=== PATIENT | female | born 1970 | race Two or more races ===

== ENCOUNTER 2017-10-31 17:08 | Inpatient (IN) | payer OTHER ==
[~2017-10-31] VITALS: Ht 142.2 cm; Wt 50.1 kg
[~2017-10-31 17:08] MED LIST: LANTUS2P SQ; LISI10TA3 PO; SIMV10TA PO
[2017-10-31] MEDS ORDERED: SODIUM CHLOR 0.9% 1000 ML INJ 1,000 ML IV SCH ×2 (17:36→21:30)
[2017-10-31] MEDS ORDERED: ACETAMINOPHEN 325 MG TAB PO PRN (17:45)
[2017-10-31] MEDS ORDERED: SODIUM CHLORIDE 0.9% FLUSH 10 ML FLUSH IV FLUSH PRN (17:45)
[2017-10-31] MEDS ORDERED: ONDANSETRON HCL 4 MG/2 ML VIAL IVP PRN (17:45)
[2017-10-31] MEDS ORDERED: NALOXONE HCL 0.4 MG/ML AMP IV PUSH PRN (17:45)
[2017-10-31 17:51] VITALS: O2SAT 99
[2017-10-31 18:37] VITALS: BP 128/73; PULSE 68; RESP 18; TEMP 98.1; O2SAT 100
[2017-10-31 18:51] LABS: CALCIUM 8.7 MG/DL (8.5-10.1)
[2017-10-31 18:52] LABS: BICARBONATE 29.2 MEQ/L (21.0-32.0)
[2017-10-31 18:55] LABS: CREATININE 0.51 MG/DL (0.50-1.00)
[2017-10-31] MEDS ORDERED: DEXTROSE 50% IN WATER 50 ML VIAL(D50) IV PUSH PRN (19:15)
[2017-10-31] MEDS ORDERED: GLUCAGON 1 MG/ML VIAL OTHER PRN (19:15)
[2017-10-31 20:00] VITALS: BP 129/61; PULSE 76; RESP 16; TEMP 98.9; O2SAT 100
[2017-10-31 20:02] VITALS: O2SAT 99
[2017-10-31] MEDS ORDERED: TEMAZEPAM 15 MG CAP PO PRN (21:00)
[2017-10-31] MEDS ORDERED: INSULIN ASPART SUPPLEMENTAL SCALE SQ SCH (21:00)
[2017-10-31] MEDS: SODIUM CHLORIDE 0.9% FLUSH 10 ML FLUSH IV FLUSH SCH (21:00)
--- NOTE | 2017-10-31 21:20 | HHI.HP ---
History of Present Illness Primary Care Physician No Primary Care Physician Admission Diagnosis hyperglycemia Diagnoses: History of Present Illness 47 y/o diabetic female transfered from [facility]. Patient states that aprox 2 weeks ago she developed mid back pain on her rt side, this was at around the time of her menses. She states that she has been working increased hours since and attributed the pain to the long hours at work and standing. She states she also had her menses at this time and this was less then normal for her. She states her menses are usually very heavy for 3-4 days requiring frequent changes. She normally will take 4 ibuprofen but this time she only took tylenol. She then states her appetite diminished and she was not eating. Denies any abdominal pain, heartburn, change in bowel movements until today when she had a loose stool. No constipation, black or tarry stools. She states she simply lost her appetite and would not eat. Lost maybe 4 pounds. She is on lantus and stopped her insulin at this time as she was not eating.She does not check her sugars.She was urinating frequently, she was feeling weak and light headed. No fever chills or cough. Review of Systems Except as stated in HPI: all other systems reviewed are Neg Past Family Social History Allergies: Coded Allergies: No Known Drug Allergies (Verified Allergy, Unknown, 10/31/17) Past Medical History Diabetes Past Surgical History Reported Medications Lantus 30 units Family History HTN Diabetes Social History 29 years, works at [employer], has daughter who were recently visiting from [place] Physical Exam Vital Signs Vital Signs Date Time Temp Pulse Resp B/P (MAP) Pulse Ox O2 Delivery O2 Flow Rate FiO2 10/31/17 20:02 99 21 10/31/17 18:37 98.1 68 18 128/73 (91) 100 10/31/17 17:51 99 21 Physical Exam GENERAL: This is a well-nourished, well-developed patient, in no apparent distress. SKIN: No rashes, ecchymoses or lesions. Cool and dry. HEAD: Atraumatic. Normocephalic. No temporal or scalp tenderness. EYES: Pupils equal round and reactive. Extraocular motions intact. No scleral icterus. No injection or drainage. ENT: Nose without bleeding, drainage . Throat without erythema, tonsillar hypertrophy or exudate. Airway patent.Dry oral mucosa with thick saliva NECK: Trachea midline. No JVD or lymphadenopathy. Supple, nontender, no meningeal signs. CARDIOVASCULAR: Regular rate and rhythm without murmurs, gallops, or rubs. RESPIRATORY: Clear to auscultation. Breath sounds equal bilaterally. No wheezes , rales, or rhonchi. GASTROINTESTINAL: Abdomen soft, non-tender, nondistended. No hepato-splenomegaly , or palpable masses. No guarding. MUSCULOSKELETAL: Extremities without clubbing, cyanosis, or edema. No joint tenderness, effusion, or edema noted. No calf tenderness. Negative Homans sign bilaterally.Tender rt mid posterior thorax NEUROLOGICAL: Awake and alert. . Motor and sensory grossly within normal limits. Normal speech. Laboratory Laboratory Tests Test 10/31/17 18:11 Blood Urea Nitrogen 7 Creatinine 0.51 Random Glucose 361 Calcium Level 8.7 Sodium Level 144 Potassium Level 3.8 Chloride Level 111 Carbon Dioxide Level 29.2 Anion Gap 4 Estimat Glomerular Filtration Rate 130 Result Diagram: 10/31/17 1811 Caprini VTE Risk Assessment Caprini Risk Assessment Model Point Value = 1 Point Value = 2 Point Value = 3 Point Value = 5 Age 41-60 Minor surgery BMI > 25 kg/m2 Swollen legs Varicose veins or History of unexplained or recurrent spontaneous Oral contraceptives or hormone replacement Sepsis (< 1 month) Serious lung disease, including pneumonia (< 1 month) Abnormal pulmonary function Acute myocardial infarction Congestive heart failure (< 1 month) History of inflammatory bowel disease Medical patient at bed rest Age 61-74 Arthroscopic surgery Major open surgery (> 45 min) Laparoscopic surgery (> 45 min) Malignancy Confined to bed (> 72 hours) Immobilizing plaster cast Central venous access Age >= 75 History of VTE Family history of VTE Factor V Leiden Prothrombin [id number] Lupus anticoagulant Anticardiolipin antibodies Elevated serum homocysteine Heparin-induced thrombocytopenia Other congenital or acquired thrombophilia Stroke (< 1 month) Elective arthroplasty Hip, pelvis, or leg fracture Acute spinal cord injury (< 1 month) Prophylaxis Regimen Total Risk Factor Score Risk Level Prophylaxis Regimen 0-1 Low Early ambulation 2 Moderate Order ONE of the following: *Sequential Compression Device (SCD) *Heparin 5000 units SQ BID 3-4 Higher Order ONE of the following medications: *Heparin 5000 units SQ TID *Enoxaparin/Lovenox 40 mg SQ daily (WT < 150 kg, CrCl > 30 mL/min) *Enoxaparin/Lovenox 30 mg SQ daily (WT < 150 kg, CrCl > 10-29 mL/min) *Enoxaparin/Lovenox 30 mg SQ BID (WT < 150 kg, CrCl > 30 mL/min) AND/OR *Sequential Compression Device (SCD) 5 or more Highest Order ONE of the following medications: *Heparin 5000 units SQ TID (Preferred with Epidurals) *Enoxaparin/Lovenox 40 mg SQ daily (WT < 150 kg, CrCl > 30 mL/min) *Enoxaparin/Lovenox 30 mg SQ daily (WT < 150 kg, CrCl > 10-29 mL/min) *Enoxaparin/Lovenox 30 mg SQ BID (WT < 150 kg, CrCl > 30 mL/min) AND *Sequential Compression Device (SCD) Assessment and Plan Problem List: (1) Diabetes mellitus with hyperosmolarity without coma, with long-term current use of insulin ICD Codes: E11.00 - Type 2 diabetes mellitus with hyperosmolarity without nonketotic hyperglycemic-hyperosmolar coma ([facility]); Z79.4 - laborer [employer] (current) use of insulin Status: Acute Plan: patietnt received 7 units of regular insulin an 3 liters of normal saline prior to transfer to [facility]. Here her sugars and electrolytes have improved on arrival. Will cont hydration and ssi u/a from [place] reflexed to culture will dose with antibiotics for now (2) Anemia ICD Codes: D64.9 - Anemia, unspecified Plan: initial blood work shows patient to be anemic, she denies any prior hx of such, admits to heavy menses, will evaluate (3) Upper back pain on right side ICD Codes: M54.9 - Dorsalgia, unspecified Status: Acute Plan: will check ct scan, Problem Qualifiers (1) Diabetes mellitus with hyperosmolarity without coma, with long-term current use of insulin: Qualified Codes: E11.00 - Type 2 diabetes mellitus with hyperosmolarity without nonketotic hyperglycemic-hyperosmolar coma (N[facility]); 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
[2017-10-31] MEDS ORDERED: cefTRIAXone INJ 1,000 MG in SODIUM CHLORIDE 0.9% INJ 100 ML IV SCH (21:30)
[2017-10-31] MEDS: PANTOPRAZOLE SOD 40 MG DELAYED RELEASE TAB PO SCH (21:39)
[2017-10-31] MEDS: cefTRIAXone INJ 1,000 MG in SODIUM CHLORIDE 0.9% INJ 100 ML IV SCH (21:58)
[2017-10-31] MEDS ORDERED: IOHEXOL 350 MG/ML 10 ML VIAL (for RAD DIAG) IVCONTRAST ONE (23:02)
--- NOTE | 2017-10-31 23:08 | RADRPT ---
EXAM DATE/TIME: 10/31/2017 22:25 [place] COMPARISON: No previous studies available for comparison. INDICATIONS : Upper right back pain. IV CONTRAST: 60 cc Omnipaque 350 (iohexol) IV RADIATION DOSE: 6.64 CTDIvol (mGy) MEDICAL HISTORY : Diabetes mellitus type 2. SURGICAL HISTORY : None. ENCOUNTER: Initial ACUITY: 1 day PAIN SCALE: 2/10 LOCATION: chest TECHNIQUE: Volumetric scanning of the chest was performed. Using automated exposure control and adjustment of t he mA and/or kV according to patient size, radiation dose was kept as low as reasonably achievable to obtain optimal diagnostic quality images. DICOM format image data is available electronically for review and comparison. Follow-up recommendations for detected pulmonary nodules are based at a minimum on nodule size and pa tient risk factors according to Fleischner Society Guidelines. FINDINGS: The lungs are free of acute parenchymal opacity. No effusions are identified. Examination of the medi astinum demonstrates no abnormally enlarged lymph nodes by CT criteria. No axillary or hilar abnormal ities are identified. Coronary artery calcifications are present. The visualized upper abdomen demons trates no abnormality. There are no findings of dissection CONCLUSION: 1. No evidence of acute thoracic abnormality. No masses are identified. Remington Sunshine MD on October 31, 2017 at 23:04 Board Certified Radiologist. This report was verified electronically.
[2017-11-01] VITALS (8 sets, daily range): BP systolic 104–116; BP diastolic 60–78; PULSE 67–86; RESP 16–18; TEMP 98–99.7; O2SAT 94–100
[2017-11-01 01:13] LABS: RETIC # 99.1 MIL/L (20.0-150.0); RETIC % 1.9 % (0.4-3.0)
[2017-11-01 01:21] LABS: % SATURATION IRON PROFILE 2.8 % (20-50); IRON (FE) 10 MCG/DL (50-170); TOTAL IRON BINDING CAPACITY 360 MCG/DL (250-450)
[2017-11-01 01:46] LABS: FERRITIN 11 NG/ML (8-252); FOLATE 17.7 NG/ML (3.1-17.5); LDH SERUM 145 U/L (84-246)
[2017-11-01 06:36] LABS: AUTOMATED NEUTROPHIL # 6.3 TH/MM3 (1.8-7.7); BASOPHIL % 0.3 % (0.0-2.0); EOSINOPHIL # 0.1 TH/MM3 (0-0.4); EOSINOPHIL % 0.8 % (0.0-4.0); HEMATOCRIT 28.4 % (35.0-46.0); HEMOGLOBIN 8.1 GM/DL (11.6-15.3); LYMPH % 26.4 % (9.0-44.0); LYMPHOCYTE # 2.6 TH/MM3 (1.0-4.8); MEAN CELL VOLUME 56.9 FL (80.0-100.0); MEAN CORPUSCULAR HEMOGLOBIN 16.3 PG (27.0-34.0); MEAN PLATELET VOLUME 8.1 FL (7.0-11.0); MONOCYTE # 0.7 TH/MM3 (0-0.9); NEUT % 65.5 % (16.0-70.0); PLATELET COUNT 533 TH/MM3 (150-450); RED CELL DISTRIBUTION WIDTH 19.6 % (11.6-17.2); WHITE BLOOD COUNT 9.7 TH/MM3 (4.0-11.0)
[2017-11-01 06:56] LABS: MEAN CORPUSCULAR HGB CONC 28.6 % (32.0-36.0)
[2017-11-01] MEDS: SODIUM CHLORIDE 0.9% FLUSH 10 ML FLUSH IV FLUSH SCH ×2 (09:00→21:48)
[2017-11-01 09:21] LABS: ALBUMIN 2.4 GM/DL (3.4-5.0); BICARBONATE 24.6 MEQ/L (21.0-32.0); CALCIUM 7.4 MG/DL (8.5-10.1); CREATININE 0.48 MG/DL (0.50-1.00); TOTAL BILIRUBIN ADULT 0.3 MG/DL (0.2-1.0)
[2017-11-01] MEDS: PANTOPRAZOLE SOD 40 MG DELAYED RELEASE TAB PO SCH (09:46)
[2017-11-01] MEDS ORDERED: INFLUENZA VIRUS VACCINE (QUADRIVALENT) 0.5 ML SYR IM ONE (10:00)
[2017-11-01 10:51] LABS: HEMOGLOBIN A1C 13.3 % (4.3-6.0)
[2017-11-01] MEDS: INSULIN ASPART SUPPLEMENTAL SCALE SQ SCH ×3 (12:00→21:51)
[2017-11-01] MEDS ORDERED: NS + KCL 20 MEQ INJ 1,000 ML IV SCH (13:30)
[2017-11-01] MEDS: POTASSIUM CHLORIDE 20 MEQ CONTROLLED RELEASE TAB PO SCH ×2 (14:03→21:48)
--- NOTE | 2017-11-01 16:59 | HHI.PR ---
Subjective Remarks te clear liquid this am, hungry ready to eat lunch Objective Vitals Vital Signs Date Time Temp Pulse Resp B/P (MAP) Pulse Ox O2 Delivery O2 Flow Rate FiO2 11/01/17 12:00 98.6 70 16 104/60 (75) 94 11/01/17 09:34 98 21 11/01/17 08:00 98.6 67 16 106/66 (79) 94 11/01/17 04:00 99.6 74 16 113/66 (82) 98 11/01/17 00:00 99.3 72 18 109/71 (84) 100 10/31/17 20:02 99 21 10/31/17 20:00 98.9 76 16 129/61 (83) 100 10/31/17 18:37 98.1 68 18 128/73 (91) 100 10/31/17 17:51 99 21 11/01/17 11/01/17 11/02/17 15:00 23:00 07:00 Intake Total 800 ml Balance 800 ml IV Total 800 ml Result Diagram: 11/01/17 0600 11/01/17 0600 Imaging Last Impressions Chest CT 10/31/17 0000 Signed Impressions: Service Date/Time: Tuesday, October 31, 2017 22:25 - CONCLUSION: 1. No evidence of acute thoracic abnormality. No masses are identified. Remington Sunshine MD Objective Remarks lying in bed lungs cta rrr +bs nontender no c/c/e A/P Problem List: (1) Anemia ICD Codes: D64.9 - Anemia, unspecified Plan: hemmocult stools, may need gi vs gu (2) Upper back pain on right side ICD Codes: M54.9 - Dorsalgia, unspecified Status: Chronic Plan: ct scan was negative for any acute process (3) Diabetes mellitus with hyperosmolarity without coma, with long-term current use of insulin ICD Codes: E11.00 - Type 2 diabetes mellitus with hyperosmolarity without nonketotic hyperglycemic-hyperosmolar coma ([facility]); Z79.4 - custodial (current) use of insulin Status: Acute Plan: cont fluids, proress diet, seen by agricultural extension educator Problem Qualifiers (1) Anemia: Qualified Codes: D50.9 - Iron deficiency anemia, unspecified (2) Diabetes mellitus with hyperosmolarity without coma, with long-term current use of insulin: Qualified Codes: E11.00 - Type 2 diabetes mellitus with hyperosmolarity without nonketotic hyperglycemic-hyperosmolar coma (N[facility]); Z79.4 - custodial ( current) use of insulin Thao Sousa MD Nov 01, 2017 16:59
[2017-11-01] MEDS ORDERED: INSULIN DETEMIR 100 UNITS/ML VIAL SQ SCH (21:00)
[2017-11-01] MEDS: cefTRIAXone INJ 1,000 MG in SODIUM CHLORIDE 0.9% INJ 100 ML IV SCH (21:49)
[2017-11-01] MEDS ORDERED: POTASSIUM CHLORIDE 20 MEQ CONTROLLED RELEASE TAB PO ONE (22:00)
[2017-11-02] VITALS: BP 102/68; PULSE 83; RESP 16; TEMP 99.2; O2SAT 100
[2017-11-02 04:00] VITALS: BP 108/70; PULSE 74; RESP 16; TEMP 98.6; O2SAT 99
--- NOTE | 2017-11-02 06:28 | MB ---
cc: BRANDI DIANE M.D. DATE OF CONSULTATION 11/01/2017 DATE OF [address] Sousa REASON FOR REFERRAL Anemia. Thank you for the consultation. HISTORY OF PRESENT ILLNESS A 47-year-old lady who has history of 2 weeks of back pain. The patient came to [facility] and she has back pain. She was admitted for anemia. The patient stated that she has heavy periods on a monthly basis and her last menses in September was less than usual but she usually has three to four heavy days with significant amount of bleeding. The patient takes ibuprofen on a regular basis but not recently as she was taking Tylenol. The patient denies any other problem and she denied any changes in bowel habits. She has brown stool, never sees black stool, never had any blood in her stool. No nausea, no vomiting. No other symptoms. PAST MEDICAL HISTORY Positive for - . Diabetes. ALLERGIES No known drug allergies. FAMILY HISTORY Significant for hypertension and diabetes. SOCIAL HISTORY She denied tobacco or alcohol. PHYSICAL EXAMINATION GENERAL: Alert, oriented, in no acute distress. VITAL SIGNS: Stable. HEENT: Pupils round, reactive to light. NECK: Supple. CHEST: Clear to auscultation and percussion. CARDIAC: Regular rate and rhythm. No murmur or gallop. ABDOMEN: Soft, nondistended. Positive bowel sounds. EXTREMITIES: No edema, clubbing or cyanosis. PSYCHOLOGICAL: Appropriate. NEUROLOGICAL: Appropriate. LABORATORY DATA White count 9.7, hemoglobin 8.1, platelet 533. Chemistry was normal. Albumin 2.4. ASSESSMENT AND PLAN A 47-year-old lady with anemia, questionable pathology, could be related to heavy period which is most likely but cannot rule out GI source, especially with her use of ibuprofen. The patient does not think that, she said her stool is brown. She does not really prefer to have any endoscopy. I told her we will do a stool Hemoccults and if it is positive we will need to do GI workup and she can have some medication by her primary care to control her period. But if she continues to be anemic I highly recommend doing a GI workup with upper endoscopy and colonoscopy. If the patient wants to do this as an outpatient, we can do that, especially if there is positive hemoccult I would recommend doing it sooner than later. MD NADJA Tesfaye /8:04 PM /6:10 AM
[2017-11-02 08:00] VITALS: BP 141/85; PULSE 82; RESP 12; TEMP 96.6; O2SAT 100
[2017-11-02] MEDS: INSULIN ASPART SUPPLEMENTAL SCALE SQ SCH ×3 (08:00→17:00)
[2017-11-02] MEDS: SODIUM CHLORIDE 0.9% FLUSH 10 ML FLUSH IV FLUSH SCH (08:59)
[2017-11-02] MEDS: PANTOPRAZOLE SOD 40 MG DELAYED RELEASE TAB PO SCH (09:00)
[2017-11-02] MEDS: POTASSIUM CHLORIDE 20 MEQ CONTROLLED RELEASE TAB PO SCH (09:00)
--- NOTE | 2017-11-02 09:08 | HHI.GIFU ---
Subjective Remarks Patient is doing well, less back pain, no abdominal pain, no other GI symptoms, no sign of bleeding Objective Vitals I&O Vital Signs Date Time Temp Pulse Resp B/P (MAP) Pulse Ox O2 Delivery O2 Flow Rate FiO2 11/02/17 04:00 98.6 74 16 108/70 (83) 99 11/02/17 00:00 99.2 83 16 102/68 (79) 100 11/01/17 20:05 82 11/01/17 20:00 99.7 86 18 116/78 (91) 100 11/01/17 14:00 98.0 72 18 108/67 (81) 94 11/01/17 12:00 98.6 70 16 104/60 (75) 94 11/01/17 09:34 98 21 I/O 11/01/17 11/01/17 11/01/17 11/02/17 11/02/17 11/02/17 06:59 14:59 22:59 06:59 14:59 22:59 Intake Total 480 ml 800 ml 1073 ml 580 ml Balance 480 ml 800 ml 1073 ml 580 ml Intake Oral 480 ml 480 ml 480 ml IV Total 800 ml 593 ml 100 ml # Voids 4 1 3 # Bowel Movements 0 0 0 Physical Exam HEENT: Pupils round and reactive to light; normocephalic; atraumatic; no jaundice. Throat is clear. NECK: Neck is supple, no JVD, no lymphadenopathy. CHEST: Chest is clear to auscultation and percussion. CARDIAC: Regular rate and rhythm with no murmur gallop or rubs. ABDOMEN: Soft, nondistended, nontender; no hepatosplenomegaly; bowel sounds are present in all four quadrants. EXTREMITIES: No clubbing, cyanosis, or edema. SKIN: Normal; no rash; no jaundice. RESIST COATER DEVELOPER: No focal deficits; alert and oriented times three. Assessment and Plan Plan Patient is a 47-year-old lady who came with back pain, she has anemia but she is convinced that it's from her heavy., We are waiting for the Hemoccult, if this positive patient will agree to have upper endoscopy and colonoscopy, if not she would like to try to control. I'm get her hemoglobin checked again Eric Drummond MD Nov 02, 2017 09:07
[2017-11-02 12:00] VITALS: BP 141/85; PULSE 82; RESP 12; TEMP 96.6; O2SAT 100
[2017-11-02 12:00] LABS: AUTOMATED NEUTROPHIL # 7.5 TH/MM3 (1.8-7.7); BASOPHIL # 0.3 TH/MM3 (0-0.2); BASOPHIL % 2.8 % (0.0-2.0); EOSINOPHIL # 0.1 TH/MM3 (0-0.4); HEMATOCRIT 29.8 % (35.0-46.0); HEMOGLOBIN 8.9 GM/DL (11.6-15.3); LYMPH % 25.7 % (9.0-44.0); LYMPHOCYTE # 2.9 TH/MM3 (1.0-4.8); MEAN CELL VOLUME 55.9 FL (80.0-100.0); MEAN CORPUSCULAR HEMOGLOBIN 16.7 PG (27.0-34.0); MEAN PLATELET VOLUME 8.1 FL (7.0-11.0); MONO % 4.1 % (0.0-8.0); MONOCYTE # 0.5 TH/MM3 (0-0.9); NEUT % 66.4 % (16.0-70.0); PLATELET COUNT 505 TH/MM3 (150-450); RED BLOOD COUNT 5.34 MIL/MM3 (4.00-5.30); RED CELL DISTRIBUTION WIDTH 19.7 % (11.6-17.2); WHITE BLOOD COUNT 11.3 TH/MM3 (4.0-11.0)
[2017-11-02 12:02] LABS: MEAN CORPUSCULAR HGB CONC 29.9 % (32.0-36.0)
[2017-11-02 12:35] LABS: OVALOCYTES 1+ (NORMAL)
[2017-11-02 12:36] LABS: TARGET CELLS 1+ (NORMAL)
[2017-11-02 12:53] LABS: BICARBONATE 26.9 MEQ/L (21.0-32.0); CALCIUM 8.1 MG/DL (8.5-10.1); CREATININE 0.5 MG/DL (0.50-1.00)
--- NOTE | 2017-11-02 13:01 | HHI.PR ---
Subjective Remarks eating lunch, good appetite,trying to follow diet given by educators Objective Vitals Vital Signs Date Time Temp Pulse Resp B/P (MAP) Pulse Ox O2 Delivery O2 Flow Rate FiO2 11/02/17 08:00 96.6 82 12 141/85 (103) 100 11/02/17 04:00 98.6 74 16 108/70 (83) 99 11/02/17 00:00 99.2 83 16 102/68 (79) 100 11/01/17 20:05 82 11/01/17 20:00 99.7 86 18 116/78 (91) 100 11/01/17 14:00 98.0 72 18 108/67 (81) 94 11/02/17 11/02/17 11/03/17 15:00 23:00 07:00 Intake Total 240 ml Balance 240 ml Intake Oral 240 ml Result Diagram: 11/02/17 1145 11/02/17 1145 Imaging Last Impressions Chest CT 10/31/17 0000 Signed Impressions: Service Date/Time: Tuesday, October 31, 2017 22:25 - CONCLUSION: 1. No evidence of acute thoracic abnormality. No masses are identified. Remington Sunshine MD Objective Remarks sitting at side of bed lungs cta rrr +bs nontender no c/c/e A/P Problem List: (1) Anemia ICD Codes: D64.9 - Anemia, unspecified Plan: hemmocult stools pending if postive she has agreed to gi w/u perhaps as outpatient will need nursing associate eval as well, (2) Upper back pain on right side ICD Codes: M54.9 - Dorsalgia, unspecified Status: Chronic Plan: ct scan was negative for any acute process currently states much improved (3) Diabetes mellitus with hyperosmolarity without coma, with long-term current use of insulin ICD Codes: E11.00 - Type 2 diabetes mellitus with hyperosmolarity without nonketotic hyperglycemic-hyperosmolar coma ([facility]); 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 Status: Acute Plan: proress diet, seen by electrostatic powder coating technician will discharge on her levemir and ssi, she states she was on levemir and metformin at one point but her prior primary discontinued it Problem Qualifiers (1) Anemia: Qualified Codes: D50.9 - Iron deficiency anemia, unspecified (2) Diabetes mellitus with hyperosmolarity without coma, with long-term current use of insulin: Qualified Codes: E11.00 - Type 2 diabetes mellitus with hyperosmolarity without nonketotic hyperglycemic-hyperosmolar coma (N[facility]HC); Z79.4 - prison ( current) use of insulin Thao Sousa MD Nov 02, 2017 13:01
[2017-11-02] MEDS ORDERED: NOVOLOGSS SQ (16:08)
[2017-11-02] MEDS ORDERED: LEVEMIR SQ (16:08)
== END 2017-11-02 17:45 | disposition home or self-care (01) | DRG 639 ==
LOC: PHEDDLT 17:08 → PH3A 17:09
PROVIDERS: ADMIT Legal Medicine; ATTEND Legal Medicine
DX: E11.00 Type 2 diabetes mellitus with hyperosmolarity without nonketotic hyperglycemic-hyperosmolar coma (NKHHC) (principal); D50.9 Iron deficiency anemia, unspecified; M54.6 Pain in thoracic spine; X50.1XXA Overexertion from prolonged static or awkward postures, initial encounter; Y99.0 Civilian activity done for income or pay; Z79.4 Long term (current) use of insulin; Z23 Encounter for immunization
CPT/HCPCS: 71046; 71260; 80048; 80053; 81001; 82010; 82272; 82607; 82668; 82728; 82746; 82948; 83020; 83036; 83540; 83550; 83605; 83615; 84702; 85025; 85044; 87086; 87804; 90471; 90686; 96374; G0008; J0696; J1815; J3480; J7030; Q2038; Q9967